=== PATIENT | male | born 1965 | race Caucasian/White ===

== ENCOUNTER 2018-01-31 15:14 | Inpatient (IN) | payer MEDICAID, OTHER ==
[2018-01-31 16:14] LABS: ADD MAN DIFF? NO
[2018-01-31 16:15] LABS: BASOPHIL # 0.1 10^3/ul (0.0-0.1); BASOPHILS % 1.3 % (0.0-2.0); EOSINOPHILS # 0.3 10^3/ul (0.0-0.5); EOSINOPHILS % 2.9 % (0.0-7.0); HEMATOCRIT 40.6 % (42.0-52.0); HEMOGLOBIN 13.9 g/dl (14.0-18.0); LYMPHOCYTES # 1.6 10^3/ul (0.8-2.9); LYMPHOCYTES % 15.5 % (15.0-51.0); MEAN CORPUSCULAR HEMOGLOBIN 28.7 pg (29.0-33.0); MEAN CORPUSCULAR HGB CONC 34.2 g/dl (32.0-37.0); MEAN CORPUSCULAR VOLUME 83.9 fl (82.0-101.0); MEAN PLATELET VOLUME 9.5 fl (7.4-10.4); MONOCYTE # 0.6 10^3/ul (0.3-0.9); MONOCYTES % 6.3 % (0.0-11.0); NEUTROPHIL # 7.1 10^3/ul (1.6-7.5); NEUTROPHILS % 70.3 % (39.0-77.0); PLATELET COUNT 382 10^3/UL (140-415); RED BLOOD COUNT 4.84 10^6/ul (4.70-6.10); RED CELL DISTRIBUTION WIDTH 12.8 % (11.5-14.5)
[2018-01-31 16:32] LABS: ALANINE AMINOTRANSFERASE 28 IU/L (13-69); ALBUMIN 3.7 g/dl (3.3-4.9); ALBUMIN/GLOBULIN RATIO 1.15; ALKALINE PHOSPHATASE 84 IU/L (42-121); ANION GAP 10 (5-13); ASPARTATE AMINO TRANSFERASE 29 IU/L (15-46); BILIRUBIN,INDIRECT 0.4 mg/dl (0-1.1); BILIRUBIN,TOTAL 0.4 mg/dl (0.2-1.3); BLOOD UREA NITROGEN 21 mg/dl (7-20); CALCIUM 8.5 mg/dl (8.4-10.2); CARBON DIOXIDE 29 mmol/L (21-31); CHLORIDE 104 mmol/L (97-110); CREATININE 1.08 mg/dl (0.61-1.24); Estimated GFR > 60 mL/min (>60); GLUCOSE 100 mg/dl (70-220); LIPASE 48 U/L (23-300); POTASSIUM 3.4 mmol/L (3.5-5.1); SODIUM 143 mmol/L (135-144); TOTAL PROTEIN 6.9 g/dl (6.1-8.1)
[2018-01-31 16:34] LABS: INR 1.09; PROTIME 14.2 Sec (11.9-14.9); PT RATIO 1.1
[2018-01-31 16:35] LABS: PARTIAL THROMBOPLASTIN TIME 37.7 Sec (23.0-35.0)
[2018-01-31] MEDS ORDERED: ENALAPRILAT 1.25 MG INJ (16:35)
[2018-01-31] MEDS: SOD CHLORIDE 0.9% 100 ML ×2 (16:41→18:04)
[2018-01-31] MEDS: SOD CHLORIDE 0.9% 1,000 ML IV ×2 (16:45→22:30)
[2018-01-31] MEDS: DEXAMETHASONE 10 MG/ML 1 ML INJ IV (16:45)
[2018-01-31] MEDS: DIPHENHYDRAMINE 50 MG INJ IV (16:45)
[2018-01-31] MEDS: ENALAPRILAT 1.25 MG INJ IV (17:06)
[2018-01-31] MEDS: ASPIRIN 81 MG TAB PO (18:30)
[2018-01-31] MEDS ORDERED: hydrALAzine 20 MG INJ (19:19)
[2018-01-31] MEDS: hydrALAzine 20 MG INJ IV (19:28)
[2018-01-31] MEDS ORDERED: ACETAMINOPHEN 650 MG SUPP PR (20:00)
[2018-01-31] MEDS ORDERED: NACL 0.9% 3 ML SYG IV (20:00)
[2018-01-31] MEDS ORDERED: LABETALOL HCL 20MG INJ IV (22:00)
[2018-02-01] MEDS: SOD CHLORIDE 0.9% 1,000 ML IV (06:16)
[2018-02-01 06:48] LABS: ADD MAN DIFF? NO
[2018-02-01 06:50] LABS: WHITE BLOOD COUNT 12.6 10^3/ul (4.8-10.8)
[2018-02-01 06:50] LABS: BASOPHILS % 0.3 % (0.0-2.0); EOSINOPHILS % 0.1 % (0.0-7.0); HEMATOCRIT 40.5 % (42.0-52.0); LYMPHOCYTES # 1.8 10^3/ul (0.8-2.9); LYMPHOCYTES % 14.6 % (15.0-51.0); MEAN CORPUSCULAR HGB CONC 34.6 g/dl (32.0-37.0); MEAN CORPUSCULAR VOLUME 83.9 fl (82.0-101.0); MEAN PLATELET VOLUME 9.9 fl (7.4-10.4); MONOCYTE # 0.5 10^3/ul (0.3-0.9); MONOCYTES % 3.6 % (0.0-11.0); NEUTROPHIL # 10.1 10^3/ul (1.6-7.5); NEUTROPHILS % 79.9 % (39.0-77.0); PLATELET COUNT 410 10^3/UL (140-415); RED BLOOD COUNT 4.83 10^6/ul (4.70-6.10); RED CELL DISTRIBUTION WIDTH 13.1 % (11.5-14.5)
[2018-02-01 07:06] LABS: HEMOGLOBIN A1C 5.5 % (0-5.9)
[2018-02-01 07:15] LABS: ALANINE AMINOTRANSFERASE 26 IU/L (13-69); ALBUMIN 3.5 g/dl (3.3-4.9); ALBUMIN/GLOBULIN RATIO 1.25; ALKALINE PHOSPHATASE 79 IU/L (42-121); ANION GAP 8 (5-13); ASPARTATE AMINO TRANSFERASE 24 IU/L (15-46); BILIRUBIN,INDIRECT 0.2 mg/dl (0-1.1); BILIRUBIN,TOTAL 0.2 mg/dl (0.2-1.3); BLOOD UREA NITROGEN 20 mg/dl (7-20); CALCIUM 8.5 mg/dl (8.4-10.2); CARBON DIOXIDE 29 mmol/L (21-31); CHLORIDE 106 mmol/L (97-110); CHOL/HDL RATIO 4.9 RATIO; CHOLESTEROL 118 mg/dl (100-200); CREATININE 0.85 mg/dl (0.61-1.24); Estimated GFR > 60 mL/min (>60); GLUCOSE 119 mg/dl (70-220); HDL CHOLESTEROL 24 mg/dl (28-71); LDL CHOLESTEROL,CALCULATED 77 mg/dl; POTASSIUM 3.2 mmol/L (3.5-5.1); SODIUM 143 mmol/L (135-144); TOTAL PROTEIN 6.3 g/dl (6.1-8.1); TRIGLYCERIDES 83 mg/dl (0-149)
[2018-02-01 07:44] LABS: THYROID STIMULATING HORMONE 0.735 MIU/L (0.465-4.680)
[2018-02-01] MEDS: POTASSIUM CHLORIDE 20 MEQ POWDER FOR ORAL SOLN PO (12:54)
[2018-02-01 20:15] LABS: ADD UMIC YES; UR ASCORBIC ACID NEGATIVE (NEGATIVE); UR BILIRUBIN (Dip) NEGATIVE (NEGATIVE); UR BLOOD (Dip) 1+ mg/dL (NEGATIVE); UR CLARITY CLOUDY (CLEAR); UR COLOR YELLOW (YELLOW); UR GLUCOSE (Dip) NEGATIVE (NEGATIVE); UR KETONES (Dip) NEGATIVE (NEGATIVE); UR LEUKOCYTE ESTERASE (Dip) NEGATIVE Leu/ul (NEGATIVE); UR NITRITE (Dip) NEGATIVE (NEGATIVE); UR RBC 0 /HPF (0-5); UR SPECIFIC GRAVITY (Dip) 1.029 (1.003-1.030); UR TOTAL PROTEIN (Dip) NEGATIVE (NEGATIVE); UR UROBILINOGEN (Dip) 1+ mg/dL (NEGATIVE); UR WBC 0 /HPF (0-5)
[2018-02-01 20:28] LABS: AMPHETAMINE/METHAMPHETAMINE NEGATIVE (NEGATIVE); BARBITURATES NEGATIVE (NEGATIVE); BENZODIAZEPINES NEGATIVE (NEGATIVE); CANNABINOIDS NEGATIVE (NEGATIVE); COCAINE NEGATIVE (NEGATIVE); OPIATES NEGATIVE (NEGATIVE)
[2018-02-01] MEDS: ATORVASTATIN 80 MG TAB PO (20:57)
[2018-02-01] MEDS ORDERED: LORAZEPAM 2 MG INJ IV (21:00)
[2018-02-02 06:25] LABS: ADD MAN DIFF? NO
[2018-02-02 06:27] LABS: WHITE BLOOD COUNT 12.6 10^3/ul (4.8-10.8)
[2018-02-02 06:27] LABS: BASOPHIL # 0.1 10^3/ul (0.0-0.1); BASOPHILS % 1.1 % (0.0-2.0); EOSINOPHILS # 0.1 10^3/ul (0.0-0.5); EOSINOPHILS % 1.1 % (0.0-7.0); HEMATOCRIT 43.7 % (42.0-52.0); HEMOGLOBIN 14.7 g/dl (14.0-18.0); LYMPHOCYTES # 2.8 10^3/ul (0.8-2.9); LYMPHOCYTES % 22.1 % (15.0-51.0); MEAN CORPUSCULAR HEMOGLOBIN 28.8 pg (29.0-33.0); MEAN CORPUSCULAR HGB CONC 33.6 g/dl (32.0-37.0); MEAN CORPUSCULAR VOLUME 85.5 fl (82.0-101.0); MEAN PLATELET VOLUME 9.7 fl (7.4-10.4); MONOCYTE # 0.9 10^3/ul (0.3-0.9); MONOCYTES % 7.5 % (0.0-11.0); NEUTROPHIL # 8.5 10^3/ul (1.6-7.5); NEUTROPHILS % 67.2 % (39.0-77.0); PLATELET COUNT 422 10^3/UL (140-415); RED BLOOD COUNT 5.11 10^6/ul (4.70-6.10); RED CELL DISTRIBUTION WIDTH 13.7 % (11.5-14.5)
[2018-02-02 06:50] LABS: ANION GAP 10 (5-13); BLOOD UREA NITROGEN 16 mg/dl (7-20); CALCIUM 8.5 mg/dl (8.4-10.2); CARBON DIOXIDE 30 mmol/L (21-31); CHLORIDE 107 mmol/L (97-110); CREATININE 0.93 mg/dl (0.61-1.24); Estimated GFR > 60 mL/min (>60); GLUCOSE 100 mg/dl (70-220); MAGNESIUM 2.1 mg/dl (1.7-2.5); PHOSPHORUS 3.9 mg/dl (2.5-4.9); POTASSIUM 3.4 mmol/L (3.5-5.1); SODIUM 147 mmol/L (135-144)
[2018-02-02] MEDS: ASPIRIN 81 MG TAB PO (08:05)
[2018-02-02 09:14] LABS: ERYTHROCYTE SEDIMENTATION RATE 5 mm/Hr (0-20)
[2018-02-02] MEDS: POTASSIUM CHLORIDE 20 MEQ POWDER FOR ORAL SOLN PO (09:57)
[2018-02-02 16:34] LABS: RAPID PLASMA REAGIN NONREACTIVE (NR)
[2018-02-02] MEDS: IOHEXOL 300MG/ML 150 ML BTL (18:16)
[2018-02-02] MEDS: IOHEXOL 100 ML (18:16)
[2018-02-02] MEDS: HALOPERIDOL 2 MG TAB PO (19:56)
[2018-02-02] MEDS: HALOPERIDOL 1 MG TAB PO (20:00)
[2018-02-02] MEDS: ATORVASTATIN 80 MG TAB PO ×2 (21:00)
[2018-02-02] MEDS: NICOTINE (14 MG/24 HR) PATCH TRANSDERM ×2 (21:00→23:18)
[2018-02-02] MEDS: LORAZEPAM 0.5 MG TAB PO ×2 (21:06→22:13)
[2018-02-02] MEDS: HALOPERIDOL 5 MG INJ IM (22:13)
[2018-02-03] MEDS ORDERED: HALOPERIDOL 5 MG INJ IM
[2018-02-03 06:43] LABS: ADD MAN DIFF? NO
[2018-02-03 06:50] LABS: BASOPHIL # 0.1 10^3/ul (0.0-0.1); BASOPHILS % 1.1 % (0.0-2.0); EOSINOPHILS # 0.2 10^3/ul (0.0-0.5); HEMATOCRIT 42.4 % (42.0-52.0); HEMOGLOBIN 14.4 g/dl (14.0-18.0); LYMPHOCYTES # 1.7 10^3/ul (0.8-2.9); LYMPHOCYTES % 17.6 % (15.0-51.0); MEAN CORPUSCULAR HEMOGLOBIN 28.6 pg (29.0-33.0); MEAN CORPUSCULAR VOLUME 84.1 fl (82.0-101.0); MEAN PLATELET VOLUME 10.2 fl (7.4-10.4); MONOCYTES % 10.3 % (0.0-11.0); NEUTROPHIL # 6.6 10^3/ul (1.6-7.5); NEUTROPHILS % 68.4 % (39.0-77.0); PLATELET COUNT 361 10^3/UL (140-415); RED BLOOD COUNT 5.04 10^6/ul (4.70-6.10); RED CELL DISTRIBUTION WIDTH 13.6 % (11.5-14.5)
[2018-02-03 06:50] LABS: WHITE BLOOD COUNT 9.7 10^3/ul (4.8-10.8)
[2018-02-03 07:13] LABS: ANION GAP 8 (5-13); BLOOD UREA NITROGEN 14 mg/dl (7-20); CALCIUM 8.3 mg/dl (8.4-10.2); CARBON DIOXIDE 28 mmol/L (21-31); CHLORIDE 106 mmol/L (97-110); CREATININE 0.86 mg/dl (0.61-1.24); Estimated GFR > 60 mL/min (>60); GLUCOSE 99 mg/dl (70-220); PHOSPHORUS 4.5 mg/dl (2.5-4.9); POTASSIUM 3.2 mmol/L (3.5-5.1); SODIUM 142 mmol/L (135-144)
[2018-02-03] MEDS: ASPIRIN 81 MG TAB PO (09:36)
[2018-02-03] MEDS: POTASSIUM CHLORIDE 20 MEQ POWDER FOR ORAL SOLN PO (09:37)
[2018-02-03] MEDS: NICOTINE (14 MG/24 HR) PATCH TRANSDERM (10:58)
[2018-02-03 12:27] LABS: HIV 1&2 ANTIBODY NEGATIVE (NEGATIVE)
[2018-02-03] MEDS: LISINOPRIL 20 MG TAB PO (17:39)
[2018-02-03] MEDS: ATORVASTATIN 80 MG TAB PO (20:11)
[2018-02-04 08:49] LABS: ADD MAN DIFF? NO
[2018-02-04 08:53] LABS: BASOPHIL # 0.1 10^3/ul (0.0-0.1); BASOPHILS % 0.9 % (0.0-2.0); EOSINOPHILS # 0.2 10^3/ul (0.0-0.5); EOSINOPHILS % 1.9 % (0.0-7.0); HEMOGLOBIN 15.7 g/dl (14.0-18.0); LYMPHOCYTES # 2.2 10^3/ul (0.8-2.9); LYMPHOCYTES % 20.6 % (15.0-51.0); MEAN CORPUSCULAR HEMOGLOBIN 28.7 pg (29.0-33.0); MEAN CORPUSCULAR HGB CONC 33.4 g/dl (32.0-37.0); MEAN CORPUSCULAR VOLUME 85.9 fl (82.0-101.0); MEAN PLATELET VOLUME 9.9 fl (7.4-10.4); MONOCYTE # 0.9 10^3/ul (0.3-0.9); MONOCYTES % 8.6 % (0.0-11.0); NEUTROPHIL # 7.1 10^3/ul (1.6-7.5); NEUTROPHILS % 67.4 % (39.0-77.0); PLATELET COUNT 419 10^3/UL (140-415); RED BLOOD COUNT 5.47 10^6/ul (4.70-6.10); RED CELL DISTRIBUTION WIDTH 13.8 % (11.5-14.5)
[2018-02-04 08:53] LABS: WHITE BLOOD COUNT 10.6 10^3/ul (4.8-10.8)
[2018-02-04 09:21] LABS: ANION GAP 8 (5-13); BLOOD UREA NITROGEN 17 mg/dl (7-20); CALCIUM 8.9 mg/dl (8.4-10.2); CARBON DIOXIDE 32 mmol/L (21-31); CHLORIDE 102 mmol/L (97-110); Estimated GFR > 60 mL/min (>60); GLUCOSE 101 mg/dl (70-220); MAGNESIUM 2.4 mg/dl (1.7-2.5); PHOSPHORUS 4.5 mg/dl (2.5-4.9); POTASSIUM 4.1 mmol/L (3.5-5.1); SODIUM 142 mmol/L (135-144)
[2018-02-04] MEDS: ASPIRIN 81 MG TAB PO (09:40)
[2018-02-04] MEDS: AMLODIPINE 10 MG TAB PO (09:41)
[2018-02-04] MEDS: LISINOPRIL 20 MG TAB PO (09:41)
[2018-02-04] MEDS: NICOTINE (14 MG/24 HR) PATCH TRANSDERM (09:45)
[2018-02-05 14:36] LABS: B2 GLYCOPROTEIN I AB (IGA) 33 SAU (< OR = 20); B2 GLYCOPROTEIN I AB (IGG) <9 SGU (< OR = 20); B2 GLYCOPROTEIN I AB (IGM) 16 SMU (< OR = 20); CARDIOLIPIN AB - IGA <11 APL; CARDIOLIPIN AB - IGG 30 GPL; CARDIOLIPIN AB - IGM 78 MPL
== END 2018-02-04 17:40 | disposition home or self-care (01) | DRG 65 ==
LOC: E/R 15:14 → TEL 02-02 16:50
DX: I63.40 Cerebral infarction due to embolism of unspecified cerebral artery (principal); I16.1 Hypertensive emergency; R47.81 Slurred speech; I65.21 Occlusion and stenosis of right carotid artery; E66.9 Obesity, unspecified; Z68.32 Body mass index [BMI] 32.0-32.9, adult; Z72.0 Tobacco use; R06.4 Hyperventilation; I69.392 Facial weakness following cerebral infarction
CPT/HCPCS: 36415; 70450; 70491; 70496; 70545; 70548; 70551; 71045; 80048; 80053; 80061; 80307; 81001; 81240; 83036; 83690; 83735; 83890; 84100; 84443; 85025; 85300; 85302; 85305; 85610; 85613; 85651; 85730; 86146; 86147; 86592; 86703; 87880; 92507; 92526; 92610; 93306; 96374; 96375; 97110; 97116; 97161; 97166; 97530; 99291-25